=== PATIENT | female | born 2000 | race Caucasian/White ===

== ENCOUNTER 2020-09-24 00:22 | Outpatient (CLI) | payer OTHER ==
[2020-09-24] MEDS ORDERED: PRENATAL TABLE1 EAC1 PO (00:48)
== END 2020-09-24 09:20 | disposition still patient (30) ==
LOC: OBS/DEL 00:22
PROVIDERS: ATTEND Obstetrics & Gynecology
DX: O26.893 Other specified pregnancy related conditions, third trimester (principal); R10.2 Pelvic and perineal pain

== ENCOUNTER 2020-09-24 09:37 | Outpatient (CLI) | payer OTHER ==
[~2020-09-24] VITALS: Ht 160 cm; Wt 63.5 kg
[~2020-09-24 09:37] MED LIST: PRENATAL TABLE1 EAC1 PO
== END 2020-09-25 08:56 | disposition home or self-care (01) ==
LOC: OBS/DEL 09:37 → LDR 09-25 08:56 → OBS/DEL 09-25 08:56 → EDSTATUS 10-05 14:15 → OB/GYN 10-05 14:15
PROVIDERS: ATTEND Obstetrics & Gynecology
DX: O99.820 Streptococcus B carrier state complicating pregnancy (principal); Z3A.38 38 weeks gestation of pregnancy

== ENCOUNTER 2020-10-03 06:24 | Inpatient (IN) | payer OTHER ==
[~2020-10-03] VITALS: Ht 160 cm; Wt 63.5 kg
== END 2020-10-05 13:45 | DRG 807 ==
LOC: OB/GYN 06:24 → LDR 06:24 → OB/GYN 14:56
PROVIDERS: ADMIT Obstetrics & Gynecology; ATTEND Obstetrics & Gynecology
PROC: 10E0XZZ Delivery of Products of Conception, External Approach (ICD-10-PCS; principal; 2020-10-03)
PROC: 0HQ9XZZ Repair Perineum Skin, External Approach (ICD-10-PCS; 2020-10-03)
PROC: 4A1HXFZ Monitoring of Products of Conception, Cardiac Rhythm, External Approach (ICD-10-PCS; 2020-10-03)
DX: O70.0 First degree perineal laceration during delivery (principal); Z37.0 Single live birth; O99.824 Streptococcus B carrier state complicating childbirth; Z3A.39 39 weeks gestation of pregnancy; Z20.828 Contact with and (suspected) exposure to other viral communicable diseases